=== PATIENT | male | born 1990 | race Caucasian/White ===

== ENCOUNTER 2025-08-03 21:11 | Emergency (ER) | payer OTHER, SELFPAY ==
[2025-08-03 21:15] VITALS: BMI 28.8
[2025-08-03 21:16] VITALS: BP 133/86; PULSE 96; RESP 19; TEMP 36.6; O2SAT 98
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
== END 2025-08-03 22:24 ==
PROVIDERS: Emergency Provider Emergency Medicine
DX: Z02.89 Encounter for other administrative examinations (principal); F10.129 Alcohol abuse with intoxication, unspecified; G40.909 Epilepsy, unspecified, not intractable, without status epilepticus; E11.9 Type 2 diabetes mellitus without complications
CPT/HCPCS: 99281